=== PATIENT | male | born 1995 | race Two or more races ===

== ENCOUNTER 2023-06-16 21:24 | Emergency (ER) | payer OTHER ==
[~2023-06-16] VITALS: Ht 172.7 cm; Wt 113.4 kg
[2023-06-16] MEDS ORDERED: HALOPERIDOL LACTATE INJ 5 MG/ML VIAL ONE (22:12)
[2023-06-16] MEDS ORDERED: HALOPERIDOL LACTATE INJ 5 MG/ML VIAL IM ONE (22:30)
[2023-06-17 05:26] VITALS: BP 159/81; O2SAT 99
== END 2023-06-17 05:36 | disposition home or self-care (01) ==
LOC: EDBD 21:26 → ER 21:26
DX: F10.129 Alcohol abuse with intoxication, unspecified (principal); E11.9 Type 2 diabetes mellitus without complications; Y90.9 Presence of alcohol in blood, level not specified
CPT/HCPCS: 99285; 96372; 82962; J1630